=== PATIENT | female | born 1980 | race Caucasian/White ===

== ENCOUNTER 2021-08-07 13:01 | Emergency (ER) | payer OTHER ==
[~2021-08-07] VITALS: Ht 154.9 cm; Wt 70.3 kg
[~2021-08-07 13:01] MED LIST: ALBUTEROL INHAL17 GM IH; AUGMENTIN 875875 MG PO; BACTRIM DS TAB1 EACH PO; BENADRYL ALLERG25 MG PO; BENADRYL25 MG PO; CLARITIN10 MG PO; DIFLUCAN150 MG PO; FAMOTIDINE PO; FLONASE 0.05%50 MCG NASAL; FLONASE 0.05%50 MCG NS; FLONASE NS; IBUPROFEN 600600 M1 PO; LORTABELXR PO; MEDROL DOSPAK21 TA1 PO; MEDROLDOSEPACK PO; NOHOMEMEDICATIONS; NORCO 5-325 TA1 EACH PO; PHENERGAN 25 MG25 M1 PO; PREDNISONE 10 M10 M1 PO; PREDNISONE 10 M10 MG PO; PREDNISONE 20 M20 M1 PO; TESSALON PERLE100 MG PO; ULTRAM 50MG TAB50 MG PO; VICODIN 5-5001 EACH PO; ZANTAC 150MG T150 M1 PO; ZPAK PO; ZYRTEC 10 MG TA10 M1 PO; ZYRTEC10 M2 PO
[2021-08-07] MEDS ORDERED: PEPCID20 MG PO (13:30)
[2021-08-07] MEDS ORDERED: PREDNISONE 20 M20 MG PO (13:30)
[2021-08-07 13:37] VITALS: BP 112/70
== END 2021-08-07 13:43 | disposition home or self-care (01) ==
LOC: M.ERS 13:01
DX: L50.9 Urticaria, unspecified (principal); F17.210 Nicotine dependence, cigarettes, uncomplicated; Z88.8 Allergy status to other drugs, medicaments and biological substances

== ENCOUNTER 2021-08-12 12:42 | Emergency (ER) | payer OTHER ==
[~2021-08-12] VITALS: Ht 154.9 cm; Wt 68.0 kg
[~2021-08-12 12:42] MED LIST changes: +PEPCID20 MG PO; +PREDNISONE 20 M20 MG PO
[2021-08-12 13:32] VITALS: BP 141/75
== END 2021-08-12 15:42 | disposition left against medical advice (07) ==
LOC: M.ERS 12:42
DX: R06.02 Shortness of breath (principal); Z53.21 Procedure and treatment not carried out due to patient leaving prior to being seen by health care provider